=== PATIENT | female | born 1960 ===

== ENCOUNTER 2020-02-26 12:57 | Emergency (ER) | payer SELFPAY ==
[~2020-02-26] VITALS: Ht 160 cm; Wt 61.1 kg
[2020-02-26 13:07] VITALS: BP 120/83
--- NOTE | 2020-02-26 13:11 | NUR ---
URINE CUP GIVEN
--- NOTE | 2020-02-26 13:48 | NUR ---
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
[2020-02-26 14:10] LABS: BASOPHILS # (AUTO) 0.01 x10^3/uL (0-0.1); BASOPHILS % (AUTO) 0 % (0-1); EOSINOPHILS % (AUTO) 1 % (1-7); LYMPHOCYTES # (AUTO) 0.92 x10^3/uL (1-3.4); LYMPHOCYTES % (AUTO) 7 % (22-44); MD NO; MEAN CORPUSCULAR HEMOGLOBIN 31.4 pg (27.0-34.8); MEAN CORPUSCULAR HGB CONC 33.5 g/dL (32.4-35.8); MEAN CORPUSCULAR VOLUME 93.8 fL (80-100); MEAN PLATELET VOLUME 9.6 fL (7.4-10.4); MONOCYTES # (AUTO) 0.87 x10^3/uL (0.2-0.8); MONOCYTES % (AUTO) 6 % (2-9); NEUTROPHILS # (AUTO) 12.27 x10^3/uL (1.8-6.8); NEUTROPHILS % (AUTO) 87 % (42-75); PLATELET COUNT 261 x10^3/uL (130-400); RED BLOOD COUNT 4.53 x10^6/uL (3.82-5.3); RED CELL DISTRIBUTION WIDTH 13.8 % (9.6-15.2)
[2020-02-26 14:20] LABS: ALBUMIN 3.7 g/dL (3.4-5.0); ANION GAP 10 mmol/L (5-15); CALCIUM 9.1 mg/dL (8.5-10.1); CHLORIDE 107 mmol/L (98-107)
[2020-02-26 14:23] LABS: CREATININE 0.63 mg/dL (0.55-1.02)
--- NOTE | 2020-02-26 14:39 | NUR ---
REPORT FROM NABOR BHATTI. PT RESTING IN BED, NAD NOTED AT THIS TIME. AWAITING UA RESULTS.
[2020-02-26 14:48] LABS: MICROSCOPIC INDICATED
--- NOTE | 2020-02-26 15:13 | NUR ---
AWAITING CHART FROM [facility].
== END 2020-02-26 15:29 | disposition home or self-care (01) ==
LOC: ED 15:00
DX: N30.01 Acute cystitis with hematuria (principal); R10.9 Unspecified abdominal pain
CPT/HCPCS: 36415; 80048; 81001; 82040; 85025; 87077; 87086; 87186; 99283